=== PATIENT | female | born 1955 | race African-American/Black ===

== ENCOUNTER → 2016-12-26 | Outpatient (CLI) | payer OTHER ==
[~2016-12-26] MED LIST: ADVIL200 M2 PO; DECADRON PO; DIAMOX SEQUELS; HYDREA; HYDROCODONE PO; LASIX 40 MG TAB40 M1 PO; MICRO-K 10 MEQ10 MEQ OR; PERCOCET; PHENERGAN 25 MG25 M1 PO; [UNRECOGNIZED DRUG - OTHER] IV; [UNRECOGNIZED DRUG - OTHER] PO
== END ==
LOC: CAT 07:48
DX: Z13.6 Encounter for screening for cardiovascular disorders (principal)

== ENCOUNTER → 2016-12-26 | Outpatient (CLI) | payer OTHER | LOC: RAD 08:26 | DX: Z12.31 Encounter for screening mammogram for malignant neoplasm of breast (principal) ==

== ENCOUNTER → 2017-11-25 | Outpatient (CLI) | payer OTHER ==
[~2017-11-25] MED LIST changes: +ASPIR 8181 MG PO; +HYDREA 500 MG500 M1 PO; +VITAMIN D1000 UNI2 PO
== END ==
LOC: CAT 08:00
DX: Z13.6 Encounter for screening for cardiovascular disorders (principal)

== ENCOUNTER → 2017-12-02 | Outpatient (CLI) | payer OTHER ==
[~2017-12-02] VITALS: Ht 157.5 cm; Wt 70.3 kg
--- NOTE | ~2017-12-02 | PATH ---
[facility] [place] [address] PATHOLOGY RPT PROCEDURE Name: JOSE MO Room #: REG SANDRA M.R.#: [id number] Admission: 12/02/17 Date of : 57 Discharge: Report #: [id number] Path Case #: [id number] [facility] Accession Number: [id number] . 01 Material submitted: . PART A: POLYP AT ASCENDING COLON PART B: POLYP AT TRANSVERSE COLON . 01 Clinical history: . History of polyps, colon polyps . 02 Diagnosis: A. Polyp, at ascending colon, endoscopic biopsy: - Hyperplastic polyp. - Negative for dysplasia. . B. Polyp, at transverse colon, endoscopic biopsy: - Tubular adenoma. - Negative for high grade dysplasia. (IUV/db; 12/05/17) LBQ/12/05/2017 . 02 Electronically signed: . Yolette Colindres MD, Pathologist NPI- [id number] . 01 Gross description: . A. Received in formalin labeled "Jose Mo [place] polyp ascending colon" is a 0.3 soft william tissue fragment which is entirely submitted as A1. . B. Received in formalin labeled "Jose Mo, polyp transverse colon" is a 0.3 cm soft william tissue fragment which is entirely submitted as B1. (PALAK; 12/03/2017) JBR/JBR . 02 Pathologist provided ICD-10: K63.5, D12.3 . 02 CPT . 962791, 942655 Performed at: [address], [place], [place] [id number] MD Duane Loera MD Phone: [phone] Performed at: 02 [facility] [address] [place] [address] PATHOLOGY RPT PROCEDURE Name: JOSE MO Room #: REG CLRosmery Esposito#: [id number] Admission: 12/02/17 Date of : 57 Discharge: Report #: [id number] Path Case #: [id number] [address] [place] [id number] MD Yolette Colindres MD Phone: [phone]
--- NOTE | ~2017-12-02 | P ---
[facility] [address] [address] [place] [address] PROCEDURE REPORT Name: JOSE MO Room #: REG [facility].#: [id number] Admission: 12/02/17 Attend Phys: Dangelo Kerr Discharge: Date of : 57 Report #: [id number] THIS REPORT FOR: //name// CC: Dangelo Espinal MD DATE OF SERVICE: 12/02/2017 PROCEDURE PERFORMED: Colonoscopy with biopsies. HISTORY OF PRESENT ILLNESS: The patient is a 62-year-old female with a history of colon polyps, here for a 5-year followup. Denies any symptoms. No family history of colon cancer. PROCEDURE: The risks and benefits of the procedure were explained to the patient, those risks including, but not limited to bleeding, perforation, and the risk of sedation. She understood these risks and gave informed consent. Sedation was given using propofol per anesthesia. Next, a digital rectal exam was initially performed, which was normal. Next, using a standard Olympus colonoscope, the scope was placed in the patient's anus and advanced under direct vision to the cecum. The overall prep was excellent. The cecum and ileocecal valve were normal in appearance. In the ascending colon, a 3-mm sessile polyp was noted. This was removed with cold forceps, otherwise normal. In the transverse colon, a 4-mm sessile polyp, also removed with cold forceps. The descending and sigmoid colon were normal. The rectal mucosa was normal. On retroflexion, no abnormalities were noted. The scope was then withdrawn and the procedure terminated. The patient tolerated the procedure well. IMPRESSION: 1. Two small colonic polyps. 2. Otherwise, normal colonoscopy. RECOMMENDATIONS: 1. Await biopsy results. 2. If polyps are hyperplastic, repeat in 10 years; if adenomatous polyp, repeat in 5 years. Thank you for allowing me to participate in her care. By: [id number] Dangelo Dominique MD /nt
== END | disposition home or self-care (01) ==
LOC: GI 08:22
DX: Z12.11 Encounter for screening for malignant neoplasm of colon (principal); Z86.010 Personal history of colon polyps; K63.5 Polyp of colon; D12.3 Benign neoplasm of transverse colon; Z98.890 Other specified postprocedural states; Z79.82 Long term (current) use of aspirin
CPT/HCPCS: 62110; 62900

== ENCOUNTER → 2017-12-04 | Outpatient (CLI) | payer OTHER | LOC: RAD 09:05 | DX: Z12.31 Encounter for screening mammogram for malignant neoplasm of breast (principal) ==

== ENCOUNTER → 2018-09-21 | Outpatient (CLI) | payer OTHER | LOC: RAD 09:21 | DX: M19.042 Primary osteoarthritis, left hand (principal); M19.041 Primary osteoarthritis, right hand; M25.551 Pain in right hip; M25.552 Pain in left hip ==

== ENCOUNTER → 2018-10-22 | Outpatient (CLI) | payer OTHER | LOC: RAD 13:49 | DX: Z12.31 Encounter for screening mammogram for malignant neoplasm of breast (principal) ==